=== PATIENT | female | born 1960 | race Caucasian/White ===

== ENCOUNTER → 2016-04-13 | Outpatient (CLI) | payer BC ==
[2016-04-13 17:15] LABS: Follicle Stimulating Hormone 64.4 mIU/mL; Prolactin 18.1 ng/mL (3.0-18.6)
== END | disposition home or self-care (01) ==
LOC: LABWHC1 15:53
PROVIDERS: ATTEND Obstetrics & Gynecology
DX: E03.9 Hypothyroidism, unspecified (principal); Z78.0 Asymptomatic menopausal state
CPT/HCPCS: 36415; 82672; 83001; 83002; 84144; 84146; 84403; 84439; 84443

== ENCOUNTER → 2016-07-21 | Outpatient (CLI) | payer BC ==
--- NOTE | 2016-07-25 13:39 | MM ---
Reason for exam: follow-up at short interval from prior study. Last mammogram was performed 6 months ago. History: Cyst aspiration of the right breast, April 19, 2011. Benign right mammotome panel of the right breast, October 16, 2007. Benign right mammotome panel of the right breast, April 12, 2005. Took progesterone for 22 years beginning at age 33. Physical Findings: Nurse did not find any significant physical abnormalities on exam. MG Diagnostic Mammo LT w CAD CC and MLO view(s) were taken of the left breast. Prior study comparison: January 18, 2016, left breast MG work up mamm w CAD LT. January 18, 2016, left breast US breast workup limited LT. January 12, 2016, bilateral MG screening mammo w CAD. December 04, 2014, bilateral MG screening mammo w CAD. July 24, 2013, bilateral MG screening mammo w CAD. There are scattered fibroglandular densities. The previous medial nodule has resolved. Some central asymmetric density on the MLO view was present previously. Inferior nodule is unchanged. These results were verbally communicated with the patient and result sheet given to the patient on 07/21/16. ASSESSMENT: Incomplete: need additional imaging evaluation, BI-RAD 0 RECOMMENDATION: Ultrasound of the left breast. MTDD
--- NOTE | 2016-07-25 13:40 | USB ---
Reason for exam: follow-up at short interval from prior study. History: Cyst aspiration of the right breast, April 19, 2011. Benign right mammotome panel of the right breast, October 16, 2007. Benign right mammotome panel of the right breast, April 12, 2005. Took progesterone for 22 years beginning at age 33. US Breast LT Left breast ultrasound includes all four quadrants, the retroareolar region and axilla. Finding demonstrate a 3 x 2 x 3mm oval, mixed lesion at 6 o'clock verses a 3 x 3 x 4mm lesion previously suggests that its benign, and a 5 x 2 x 4mm oval, cystic lesion at 5 o'clock, benign. These results were verbally communicated with the patient and result sheet given to the patient on 07/21/16. ASSESSMENT: Probably benign, BI-RAD 3 RECOMMENDATION: Follow-up diagnostic mammogram of both breasts in 6 months.
== END | disposition home or self-care (01) ==
LOC: RADMAMWWP 14:45
PROVIDERS: ATTEND Obstetrics & Gynecology
DX: R92.2 Inconclusive mammogram (principal); R92.8 Other abnormal and inconclusive findings on diagnostic imaging of breast
CPT/HCPCS: 76641; G0206

== ENCOUNTER → 2017-01-09 | Outpatient (CLI) | payer BC ==
--- NOTE | 2017-01-10 07:15 | MM ---
Reason for exam: follow-up at short interval from prior study. Last mammogram was performed 6 months ago. History: Cyst aspiration of the right breast, April 19, 2011. Benign right mammotome panel of the right breast, October 16, 2007. Benign right mammotome panel of the right breast, April 12, 2005. Took progesterone for 22 years beginning at age 33. Physical Findings: Nurse did not find any significant physical abnormalities on exam. MG Diagnostic Mammo w CAD SARAH Bilateral CC and MLO view(s) were taken. Prior study comparison: July 21, 2016, left breast MG diagnostic mammo LT w CAD. January 12, 2016, bilateral MG screening mammo w CAD. December 04, 2014, bilateral MG screening mammo w CAD. The breast tissue is heterogeneously dense. This may lower the sensitivity of mammography. Previous mammotome biopsy within the right breast x 2. There is chronic nodularity in the left breast. There is no new dominant lesion. These results were verbally communicated with the patient and result sheet given to the patient on 01/09/17. ASSESSMENT: Benign, BI-RAD 2 RECOMMENDATION: Routine screening mammogram of both breasts in 1 year.
== END | disposition home or self-care (01) ==
LOC: RADMAMWWP 15:18
PROVIDERS: ATTEND Obstetrics & Gynecology
DX: R92.8 Other abnormal and inconclusive findings on diagnostic imaging of breast (principal)

== ENCOUNTER → 2021-12-01 | Outpatient (CLI) | payer BC ==
--- NOTE | 2021-12-02 17:38 | MM ---
Reason for Exam: Screening (asymptomatic). Last mammogram was performed 3 year(s) and 11 month(s) ago. Patient History: Menarche at age 13. First Full-Term at age 23. Right ovary removed at age 31. Postmenopausal. Progesterone for 22 years from age 33 until age 55. 04/19/2011, Cyst Aspiration on the Right side. 10/16/2007, Benign Core Biopsy on the right side. 04/12/2005, Benign Core Biopsy on the right side. Risk Values: Marnie 5 year model risk: 1.9%. NCI Lifetime model risk: 9.7%. Prior Study Comparison: 07/21/2016 Left Diagnostic Mammogram, [facility]. 01/09/2017 Bilateral Diagnostic Mammogram, [facility]. 01/24/2018 Bilateral Screening Mammogram, [facility]. Tissue Density: There are scattered fibroglandular densities. Findings: Analyzed By CAD. A core marker is in the right breast. No suspicious groups of microcalcifications, spiculated or lobular masses, architectural distortion or other secondary signs of malignancy are mammographically apparent. Overall Assessment: Benign, BI-RAD 2 Management: Screening Mammogram of both breasts in 1 year. A negative mammogram report should not preclude additional follow up of suspicious palpable abnormalities. Patient should continue monthly self breast exam. A clinical breast exam by your physician is recommended on an annual basis and results should be correlated with mammographic findings. Electronically signed and approved by: Pillo Mi D.O. Radiologis
== END | disposition home or self-care (01) ==
LOC: RADMAMWWP 11:05
PROVIDERS: ATTEND Family Medicine
DX: Z12.31 Encounter for screening mammogram for malignant neoplasm of breast (principal)
CPT/HCPCS: 77063; 77067

== ENCOUNTER → 2022-10-11 | Outpatient (CLI) | payer BC | END | disposition home or self-care (01) | LOC: LABWHC1 10:10 | PROVIDERS: ATTEND Family Medicine | DX: R07.89 Other chest pain (principal) | CPT/HCPCS: 36415; 93005 ==

== ENCOUNTER → 2022-10-20 | Outpatient (CLI) | payer BC ==
--- NOTE | 2022-10-20 12:33 | CA ---
Transthoracic Echo Report Name: Lori Odonnell Age: 61 Gender: F : 1960 Exam Date: 10/20/2022 09:53 Exam Location: [facility] Ht (in): 65 Wt (lb): 155 Ordering Physician: Dennis Reed DO Attending/Referring Phys: Lorna Kwon [facility] Air Quality Consultant Dai Lindsey [facility] Procedure CPT: Indications: R07.89 chest pain Cardiac Hx: Technical Quality: Fair Contrast 1: Total Dose (mL): Contrast 2: Total Dose (mL): MEASUREMENTS (Male / Female) Normal Values 2D ECHO LV Diastolic Diameter PLAX 3.5 cm 4.2 - 5.9 / 3.9 - 5.3 cm LV Systolic Diameter PLAX 2.4 cm IVS Diastolic Thickness 0.8 cm 0.6 - 1.0 / 0.6 - 0.9 cm LVPW Diastolic Thickness 0.9 cm 0.6 - 1.0 / 0.6 - 0.9 cm LV Relative Wall Thickness 0.5 LVOT Diameter 2.0 cm M-MODE Aortic Root Diameter MM 2.5 cm LA Systolic Diameter MM 2.6 cm LA Ao Ratio MM 1.1 AV Cusp Separation MM 2.0 cm DOPPLER AV Peak Velocity 104.2 cm/s AV Peak Gradient 4.3 mmHg AV Mean Velocity 74.2 cm/s AV Mean Gradient 2.5 mmHg AV Velocity Time Integral 18.0 cm LVOT Peak Velocity 101.6 cm/s LVOT Peak Gradient 4.1 mmHg LVOT Velocity Time Integral 16.4 cm LVOT Stroke Volume 52.1 cm??? LVOT Stroke Volume Index 29.4 ml/m??? LVOT Cardiac Index 2247.6 cm???/min???m??? AV Area Cont Eq vti 2.9 cm??? AV Area Cont Eq pk 3.1 cm??? Mitral E Point Velocity 54.0 cm/s Mitral A Point Velocity 67.9 cm/s Mitral E to A Ratio 0.8 MV Deceleration Time 235.8 ms LV E' Lateral Velocity 10.0 cm/s Mitral E to LV E' Lateral Ratio 5.4 LV E' Septal Velocity 8.6 cm/s Mitral E to LV E' Septal Ratio 6.3 Right Atrial Pressure 8.0 mmHg FINDINGS Left Ventricle Normal Left ventricular size, wall thickness, systolic function with no obvious regional wall motion abnormalities. Left ventricular ejection fraction is estimated at 55-60%. Right Ventricle Normal right ventricular size and function. Right Atrium Normal right atrial size. Left Atrium Normal left atrial size. Mitral Valve Structurally normal mitral valve. No mitral regurgitation. Aortic Valve Trileaflet aortic valve. No aortic valve stenosis or regurgitation. Tricuspid Valve Structurally normal tricuspid valve. No tricuspid regurgitation. Pulmonic Valve Pulmonic valve not well visualized. Pericardium No pericardial effusion. Aorta Normal size aortic root. CONCLUSIONS normal lv Previewed by: Dr. Isaiah Marlow MD (Electronically Signed) Final Date: 20 October 2022 12:32
== END | disposition home or self-care (01) ==
LOC: RADECHMAIN 09:40
PROVIDERS: ATTEND Family Medicine
DX: R07.89 Other chest pain (principal)
CPT/HCPCS: 93306

== ENCOUNTER → 2023-04-25 | Outpatient (CLI) | payer BC ==
[2023-04-25 13:14] VITALS: BP 123/83; PULSE 80; RESP 16; TEMP 97.3
--- NOTE | 2023-04-25 14:31 | P.PAINPG ---
PQRS Measure Charge Sheet Comment: HISTORY OF PRESENT ILLNESS: A 62 yr old female as a referral from Mac[facility] PADILLA presents today w severe and chronic mid back pain secondary to DDD, spondylosis and facet arthropathy without myelopathy for evaluation. Pt states pain level is provoked at 10 /10 in intensity, constant, localized in the mid back, predominantly axial, stabbing in character w occasional shooting pain towards the ribs. Pain is provoked by any lifting. Pain is alleviated by PT x 2 wks which she is currently in, alternating heat & ice, medications ([place], Advil, Tyl), repositioning and rest. Oswestry axial pain score at 21. PMH: OA, Hyperlipidemia, MVP, Hypothyroidism, Anxiety PSH: Colonoscopy (2013), EGD (2016), L Oophorectomy, Thyroidectomy SH: 25 pack/ yr tobacco use, No ETOH abuse, No illicit drug use FH: Mo- DVT All: See list Meds: See list REVIEW OF ORGAN SYSTEMS: CONSTITUTIONAL: No fevers or chills. No recent weight loss. NEUROLOGICAL: + numbness and tingling along the distal extremities. No seizure disorders or headaches. MUSCULOSKELETAL: + pain PSYCHIATRIC: Denies current depression or suicidal thoughts. Physical Examinations : Constitutional : Cooperative , not in acute distress . Neurologic : Cranial nerve II to XII intact. No focal neurological deficits. Psychiatric : alert & oriented x 3. Matching mood & appropriate affect. Judgment & insight intact. Musculoskeletal : Cervical Spine Motor strength in the deltoid and biceps: Normal right side. Normal Left side Motor strength biceps and the wrist extensors: Normal right side . Normal left side Motor strength in the triceps muscle: Normal right side. Normal left side Deep tendon reflexes: Normal at the biceps. Normal at Brachioradialis. Normal at triceps Vertebral body tenderness to deep palpation over Cervical facet loading test: positive bilaterally Spurling test: positive bilaterally Neck distraction test: positive bilaterally Maggie sign: positive bilaterally Thoracic spine Vertebral body TTP T11 Lumbar spine Motor strength lower extremities ,thigh and legs 5/5 Right side , 5/5 Left side Deep tendon reflexes : Normal Knee Jerk. Normal Ankle Jerk Vertebral body tenderness over Chaidez Test positive Lumbar facet Loading Test: positive Right / positive Left Range of motion of the lumbar spine Flexion 30 degrees, extension 10 degrees Straight Leg Raise test: Left/ Right positive at degree Feliciano test: positive right / positive left. Severe tenderness over the Sacroiliac joint on the Right / Left sides Gaenslen test: positive bilaterally Seated flexion test: positive bilaterally. Sacral spine : Severe tenderness over the Sacroiliac joint: right side / left side Range of motion: Flexion of the lumbar spine <60 degrees Range of motion: Extension of the lumbar spine <20 degrees Gaenslen's Test positive Feliciano test: positive right side / left side Thigh Thrust Test Sacral Thrust Test Imaging: MRI noncontrast of the thoracic spine from 02/09/2021 reviewed Assessment/ Plan : Thoracic DDD Will follow up w her PCP for additional testing, including a nuclear bone scan, as recommended in her MRI thoracic spine. All questions answered. I have spent greater than 30 minutes on patient care today. Dr Mills was available by phone for the evaluation of this patient. The time was used to review the medical records including relevant urine studies and Prescription history (MAPs), review of the available imaging, evaluation and examination of the patient, coordination of care with the medical staff and if applicable referring physicians, as well as creation of the medical record - Pain Location Bilateral Upper Back Non-Pharmacological Interventions: Heat, Ice, Inactivity, Physical Therapy Pharmacological Interventions: PRN Medication, Scheduled Medication PQRS Narrative: Smoking Status Current every day smoker Home Medications: Ambulatory Orders Atorvastatin [Lipitor] 20 mg PO HS 12/24/13 Escitalopram [Lexapro] 10 mg PO BID 12/24/13 Medroxyprogesterone Acetate [Provera] 20 mg PO DAILY 12/24/13 ALPRAZolam [Xanax] 1 mg PO Q8HR PRN 07/22/15 Controlled Substance Measures - Controlled Substance Measures Is patient prescribed a controlled substance at discharge?: No
== END ==
LOC: PNWHC3 12:34
PROVIDERS: ATTEND Specialist
DX: M51.34 Other intervertebral disc degeneration, thoracic region (principal); M47.814 Spondylosis without myelopathy or radiculopathy, thoracic region; F17.210 Nicotine dependence, cigarettes, uncomplicated; M19.90 Unspecified osteoarthritis, unspecified site; E78.5 Hyperlipidemia, unspecified; E03.9 Hypothyroidism, unspecified; F41.9 Anxiety disorder, unspecified; Z86.79 Personal history of other diseases of the circulatory system; Z88.8 Allergy status to other drugs, medicaments and biological substances
CPT/HCPCS: 99211

== ENCOUNTER → 2024-02-25 | Outpatient (CLI) | payer BC ==
--- NOTE | 2024-02-27 17:35 | CTL ---
EXAMINATION TYPE: CT Low Dose Lung DATE OF EXAM: 02/25/2024 4:55 PM COMPARISON: 01/26/2016 CLINICAL INDICATION: Female, 63 years old with history of Z12.2 LUNG CA SCR F17.210 CURRENT, personal hx of nicotine dependence 1ppd X 25 years current smoker down to 1/2 ppd, Lung cancer screening, His tory of tobacco use. TECHNIQUE: Low dose computed tomography scan was performed through the chest at 1 mm thick sections a nd reconstructed images in the coronal plane at 1 mm thick sections. Contrast used: mL of , (none if empty) Oral contrast used: (none if empty) CT DLP: 96.2 mGycm, Automated exposure control for dose reduction was used. CT CTDI: 2.5 mGy, Automated exposure control for dose reduction was used. SCREENING VISIT: Subsequent CT DIAGNOSTIC QUALITY: Satisfactory FINDINGS: LUNG NODULES: Present, detailed below: 1. There are multiple calcified granuloma present. These are benign and no further workup is required LUNGS: COPD: Severity: None Fibrosis: Severity: None Lymph nodes: There are multiple calcified lymph nodes within the mediastinum and hilar regions. Other findings: None RIGHT PLEURAL SPACE: Effusion: None Calcification: None Thickening: None Pneumothorax: None LEFT PLEURAL SPACE: Effusion: None Calcification: None Thickening: None Pneumothorax: None HEART: Other: Ascending thoracic aorta at the level the main pulmonary artery measures 2.9 cm. The main pul monary artery at the bifurcation measures2.7 cm. Heart Size: Normal Coronary calcification: Pericardial effusion: None OTHER FINDINGS: Upper abdomen: Normal Bony thorax: Normal Supraclavicular region: Normal IMPRESSION: 1. Benign appearance. No suspicious changes to suggest primary or metastatic neoplasm. FOLLOW UP CT CHEST RECOMMENDATION: Follow-up low-dose CT chest one year CT LUNG RAD: Lung-Rad 2 Benign Appearance or Behavior [facility], Workstation: [facility], 02/27/2024 5:33 PM
--- NOTE | 2024-03-03 07:17 | MM ---
Reason for Exam: Screening (asymptomatic). Last mammogram was performed 2 year(s) and 2 month(s) ago. Patient History: Menarche at age 13. First Full-Term at age 23. Right ovary removed at age 31. Postmenopausal. Progesterone for 22 years from age 33 until age 55. 04/19/2011, Cyst Aspiration on the Right side. 10/16/2007, Benign Core Biopsy on the right side. 04/12/2005, Benign Core Biopsy on the right side. Risk Values: Marnie 5 year model risk: 2.1%. NCI Lifetime model risk: 9.2%. Prior Study Comparison: 01/09/2017 Bilateral Diagnostic Mammogram, [facility]. 01/24/2018 Bilateral Screening Mammogram, [facility]. 12/01/2021 Bilateral MG 3D screening mammo w/cad, [facility]. Tissue Density: There are scattered areas of fibroglandular density. Findings: Analyzed By CAD. Right breast: There is no suspicious group of microcalcifications or new suspicious mass. Left breast: There is no suspicious group of microcalcifications or new suspicious mass. Overall Assessment: Negative, BI-RAD 1 Management: Screening Mammogram of both breasts in [address] [facility] will attempt to contact patient to return for supplemental views and ultrasound if indicated. Patient should continue monthly self-breast exams. A clinical breast exam by your physician is recommended on an annual basis. This exam should not preclude additional follow-up of suspicious palpable abnormalities. Note on Marnie scores and lifetime risk: 1. A Marnie score greater than 3% is considered moderate risk. If this is the case, consider specialist referral to assess eligibility for a risk reducing agent. 2. If overall lifetime risk for the development of breast cancer is 20% or higher, the patient may qualify for future screening with alternating mammogram and breast MRI. [facility], , 03/03/2024 7:14 AM. Electronically signed and approved by: Mathew Mcdonald DO
== END | disposition home or self-care (01) ==
LOC: RADMAMWWP 14:54
PROVIDERS: ATTEND Family Medicine
DX: Z12.31 Encounter for screening mammogram for malignant neoplasm of breast (principal); F17.210 Nicotine dependence, cigarettes, uncomplicated; Z12.2 Encounter for screening for malignant neoplasm of respiratory organs; Z90.721 Acquired absence of ovaries, unilateral; Z78.0 Asymptomatic menopausal state; R92.323 Mammographic fibroglandular density, bilateral breasts
CPT/HCPCS: 71271; 77067

== ENCOUNTER → 2024-03-11 | Outpatient (CLI) | payer BC ==
--- NOTE | 2024-03-11 10:00 | US ---
EXAMINATION TYPE: US pelvic complete DATE OF EXAM: 03/11/2024 COMPARISON: NONE CLINICAL INDICATION: Female, 63 years old with history of R14.0 ABDOMINAL DISTENSION; Patient states right ovary was removed due to endometriosis; Put on medication in 20s to stop menses TECHNIQUE: Transabdominal (TA). Transabdominal grayscale sonographic images of the pelvis were acquired. Transvaginal sonographic im ages were medically necessary to better assess the following anatomy: Not medically necessary/patient declined Doppler imaging: Not performed. FINDINGS: Date of LMP: Unknown EXAM MEASUREMENTS: Uterus: 6.9 x 2.8 x 4.1 cm Endometrial Stripe: 0.8 cm Right Ovary: ? Surgically absent cm Left Ovary: WNL cm 1. Uterus: Anteverted Echogenic heterogenous area = 2.6 x 2.4 x 2.3 cm 2. Endometrium: Heterogenous 3. Right Ovary: ? Surgically absent 4. Left Ovary: 2.1 x 1.3 x 1.9 cm 5. Bilateral Adnexa: ? Dilated tubular structure leading to lesion vs right ovary = 2.8 x 1.6 x 1.7 cm . Consider mild hydrosalpinx. 6. Posterior cul-de-sac: wnl IMPRESSION: 1. There may be mild right hydrosalpinx present. [facility], , 03/11/2024 9:58 AM
--- NOTE | 2024-03-11 10:04 | US ---
EXAMINATION TYPE: US abdomen complete DATE OF EXAM: 03/11/2024 COMPARISON: NONE CLINICAL INDICATION: Female, 63 years old with history of R14.0 ABDOMINAL DISTENSION x few months; Hx nicotine dependance; Patient denies any other signs, symptoms, or relevant history TECHNIQUE: Grayscale and color Doppler imaging of the abdomen was performed. FINDINGS: EXAM MEASUREMENTS: Liver Length: 14.8 cm Gallbladder Wall: 0.3 cm CBD: 0.3 cm, color Doppler imaging was utilized to isolate the common bile duct for measurement. Spleen: 8.0 cm Right Kidney: 11.0 x 5.2 x 4.9 cm Left Kidney: 10.1 x 5.8 x 5[address] FOREMAN NOTES: ? Patient not properly NPO - difficult scan due to overlying gas Pancreas: Obscured by bowel gas Liver: Obscured by overlying bowel gas; Echogenic area seen in coronal decub position Gallbladder: wnl Evidence for sonographic Eisenberg's sign: No CBD: wnl Spleen: wnl Right Kidney: Limited visualization due to overlying gas;WNL as visualzed Left Kidney: wnl Upper IVC: Limited visualization due to overlying gas;WNL as visualzed Abd Aorta: Limited visualization due to overlying gas;WNL as visualzed IMPRESSION: 1. Limited examination due to bowel gas. 2. Within the portions visualized, no suspicious ultrasound abnormality evident [facility], , 03/11/2024 10:01 AM
== END | disposition home or self-care (01) ==
LOC: RADUSWWP 08:48
PROVIDERS: ATTEND Family Medicine
DX: R14.0 Abdominal distension (gaseous) (principal); Z90.721 Acquired absence of ovaries, unilateral; R14.3 Flatulence
CPT/HCPCS: 76700; 76856

== ENCOUNTER 2024-03-20 08:57 | Day surgery (SDC) | payer BC ==
[2024-03-20 09:38] VITALS: TEMP 97.9
[2024-03-20] MEDS: IV FLUID CONTINUATION 1,000 ML IV ONE (09:47)
[2024-03-20] MEDS: LIDOCAINE 1% (10MG/ML) FOR IV START INTRADERMA PRN (09:47)
[2024-03-20] MEDS: LACTATED RINGERS 1,000 ML IV SCH (09:47)
[2024-03-20] MEDS ORDERED: PROPOFOL 10 MG/ML 20 ML VIAL IV ONE (11:02)
--- NOTE | 2024-03-20 11:27 | P.PCN ---
Date of Procedure: 03/20/24 Procedure(s) Performed: BRIEF HISTORY: Patient is a 63-year-old pleasant white female scheduled for an elective colonoscopy as a part of screening for colon cancer/positive Cologuard. PROCEDURE PERFORMED: Colonoscopy with snare polypectomy and Endo Clip placement. PREOPERATIVE DIAGNOSIS: Screening for colon cancer/positive Cologuard. IV sedation per Anesthesia. PROCEDURE: After informed consent was obtained, the patient, was brought into the endoscopy unit. IV sedation was administered by Anesthesia under continuous monitoring. Digital rectal examination was normal. Initially the Olympus CF-160 flexible video colonoscope was then inserted in the rectum, gradually advanced into the cecum without any difficulty. Careful examination was performed as the scope was gradually being withdrawn. Ileocecal valve and the appendiceal orifice were visualized and appeared normal. Prep was excellent. Mucosa of the cecum, appeared normal. The ascending colon there was a 2 cm flat polyp that was removed by piecemeal snare polypectomy followed by Endo Clip placement. In the transverse colon there was a 1 cm polyp removed by snare polypectomy. Rest of the ascending colon, transverse colon, descending colon, sigmoid colon, and rectum appeared normal. Retroflexion was performed in the rectum and no lesions were seen. The patient tolerated the procedure well. IMPRESSION: 2 cm flat ascending colon polyp status post piecemeal snare polypectomy followed by Endo Clip placement 1 cm transverse colon polyp status post polypectomy RECOMMENDATIONS: Findings of this examination were discussed with the patient as well as her family. She was advised to follow with the biopsy results. If the biopsy reveals adenoma she can have repeat colonoscopy in 3 years.
[2024-03-20 11:58] VITALS: BP 104/65; PULSE 77; RESP 17
== END 2024-03-20 12:27 | disposition home or self-care (01) ==
LOC: ORWHC2ENDO 08:57
PROVIDERS: ATTEND Internal Medicine Gastroenterology
DX: Z12.11 Encounter for screening for malignant neoplasm of colon (principal); D12.2 Benign neoplasm of ascending colon; D12.3 Benign neoplasm of transverse colon; I34.1 Nonrheumatic mitral (valve) prolapse; E78.5 Hyperlipidemia, unspecified; E03.9 Hypothyroidism, unspecified; F41.9 Anxiety disorder, unspecified; F17.210 Nicotine dependence, cigarettes, uncomplicated; Z79.890 Hormone replacement therapy; Z79.1 Long term (current) use of non-steroidal anti-inflammatories (NSAID); Z79.899 Other long term (current) drug therapy; Z88.8 Allergy status to other drugs, medicaments and biological substances
CPT/HCPCS: 88305; 45385; J2704